=== PATIENT | female | born 2000 | race Caucasian/White ===

== ENCOUNTER → 2020-10-03 | Outpatient (CLI) | payer BC ==
[2020-10-03 13:20] LABS: HEMOGLOBIN 14.1 gm/dl (12.3-15.3); RED BLOOD COUNT 4.31 M/UL (4.00-5.10); WHITE BLOOD COUNT 8.4 K/UL (4.5-11.0)
[2020-10-03 13:41] LABS: BUN/CREATININE RATIO 20 (0-10)
[2020-10-05 14:11] LABS: ANTI-DSDNA ANTIBODIES 3 IU/mL (0-9)
[2020-10-06 18:11] LABS: DRVVT 37.9 sec (0.0-47.0); LUPUS REFLEX INTERPRETATION Comment: (.); PT 10.6 sec (9.1-12.0); PT 1:1NP 10.6 sec (9.1-12.0); PTT-LA 30.5 sec (0.0-51.9); THROMBIN TIME 17.1 sec (0.0-23.0)
== END ==
LOC: LAB 12:21
PROVIDERS: Nurse Practitioner Family
DX: Z13.0 Encounter for screening for diseases of the blood and blood-forming organs and certain disorders involving the immune mechanism (principal)
CPT/HCPCS: 80053; 85025; 85610; 85611; 85730; 86038; 86225; 86226; 86235

== ENCOUNTER → 2021-01-16 | Outpatient (CLI) | payer BC | LOC: LAB 09:41 | DX: E28.2 Polycystic ovarian syndrome (principal); N76.0 Acute vaginitis | CPT/HCPCS: 82947; 83036 ==